=== PATIENT | female | born 1985 | race Caucasian/White ===

== ENCOUNTER 2016-07-30 08:42 | Emergency (ER) | payer MEDICARE ==
[2010-10-13 07:17] VITALS: BMI 25.4
== END 2016-07-30 10:03 | disposition home or self-care (01) ==
LOC: D.ER 08:42
DX: S46.912A Strain of unspecified muscle, fascia and tendon at shoulder and upper arm level, left arm, initial encounter (principal); X58.XXXA Exposure to other specified factors, initial encounter; Y93.89 Activity, other specified; Y92.019 Unspecified place in single-family (private) house as the place of occurrence of the external cause

== ENCOUNTER 2016-11-26 10:42 | Emergency (ER) | payer MEDICARE, MEDICAID ==
[2010-10-13 07:17] VITALS: BMI 25.4
[2016-11-26 16:17] LABS: ALBUMIN 3.6 g/dL (3.4-5.0); ALKALINE PHOSPHATASE 152 U/L (46-116); ALT (SGPT) 84 U/L (10-68); CALC OSMOLALITY 285 mosm/kg (275-300); CARBON DIOXIDE 27.6 mmol/L (21.0-32.0); CHLORIDE - SERUM 107 mmol/L (98-107); CREATININE - SERUM 0.9 mg/dL (0.6-1.3); GLUCOSE 100 mg/dL (74-106); POTASSIUM - SERUM 4.3 mmol/L (3.5-5.1); PROTEIN - SERUM 7.7 g/dL (6.4-8.2); SODIUM 144 mmol/L (136-145); UREA NITROGEN 11 mg/dL (7-18); eGFR NON AFRICAN AMERICAN 78 mL/min (90-120)
[2016-11-26 16:20] LABS: BASOPHILS 0.3 % (0-2); EOSINOPHILS 2.7 % (0-7); HEMATOCRIT 51.7 % (36.0-48.0); HEMOGLOBIN 15.8 g/dL (12-16); IMMATURE GRANULOCYTES 0.2 % (0-5); LYMPHOCYTES 29.8 % (15-50); MCH 29.4 pg (26.0-34.0); MCHC 30.6 g/dL (31.0-37.0); MCV 96.1 fL (80.0-100.0); MEAN PLATELET VOLUME 11.9 fL (7.4-10.4); MONOCYTES 8.5 % (2-11); NEUTROPHILS 58.5 % (40-80); PLATELET COUNT 188 10x3/uL (130-400); RBC 5.38 10x6/uL (4.00-5.40); RDW 14.9 % (11.5-14.5)
== END 2016-11-26 19:10 | disposition home or self-care (01) ==
LOC: D.ER 10:42
PROVIDERS: Physician Assistant
DX: R07.9 Chest pain, unspecified (principal); R05 Cough; K63.89 Other specified diseases of intestine

== ENCOUNTER 2016-12-30 10:07 | Emergency (ER) | payer MEDICARE ==
[2010-10-13 07:17] VITALS: BMI 25.4
== END 2016-12-30 11:34 | disposition home or self-care (01) ==
LOC: D.ER 10:07
DX: L02.01 Cutaneous abscess of face (principal); F17.200 Nicotine dependence, unspecified, uncomplicated

== ENCOUNTER 2017-01-04 08:49 | Emergency (ER) | payer MEDICARE ==
[2010-10-13 07:17] VITALS: BMI 25.4
== END 2017-01-04 10:09 | disposition home or self-care (01) ==
LOC: D.ER 08:49
DX: S01.81XD Laceration without foreign body of other part of head, subsequent encounter (principal); X58.XXXD Exposure to other specified factors, subsequent encounter; Y92.89 Other specified places as the place of occurrence of the external cause; Z48.02 Encounter for removal of sutures

== ENCOUNTER 2017-07-18 09:36 | Emergency (ER) | payer MEDICARE ==
[2010-10-13 07:17] VITALS: BMI 25.4
[2017-07-18 10:24] LABS: HCG URINE NEGATIVE (NEGATIVE)
[2017-07-18 10:34] LABS: APPEARANCE SLT CLOUDY (CLEAR); BILIRUBIN NEGATIVE (NEGATIVE); COLOR YELLOW (YELLOW); GLUCOSE NEGATIVE (NEGATIVE); KETONE NEGATIVE (NEGATIVE); NITRITE NEGATIVE (NEGATIVE); PROTEIN NEGATIVE (NEGATIVE); SPECIFIC GRAVITY 1.015 (1.005-1.020); UROBILINOGEN NORMAL (NORMAL)
[2017-07-18 10:35] LABS: BACTERIA MANY /hpf (NONE SEEN); RED CELLS - URINE RARE /hpf (0-5)
== END 2017-07-18 14:37 | disposition home or self-care (01) ==
LOC: D.ER 09:36
PROVIDERS: Family Medicine
DX: N39.0 Urinary tract infection, site not specified (principal); S39.012A Strain of muscle, fascia and tendon of lower back, initial encounter; W01.0XXA Fall on same level from slipping, tripping and stumbling without subsequent striking against object, initial encounter; Y93.89 Activity, other specified; Y92.013 Bedroom of single-family (private) house as the place of occurrence of the external cause

== ENCOUNTER 2017-09-11 10:36 | Emergency (ER) | payer MEDICARE ==
[2010-10-13 07:17] VITALS: BMI 25.4
[2017-09-11 11:43] LABS: APPEARANCE CLOUDY (CLEAR); BILIRUBIN NEGATIVE (NEGATIVE); COLOR YELLOW (YELLOW); GLUCOSE NEGATIVE (NEGATIVE); KETONE NEGATIVE (NEGATIVE); NITRITE NEGATIVE (NEGATIVE); PROTEIN 1+ mg/dL (NEGATIVE); SPECIFIC GRAVITY 1.025 (1.005-1.020); UROBILINOGEN NORMAL (NORMAL)
[2017-09-11 11:47] LABS: BACTERIA MANY /hpf (NONE SEEN); RED CELLS - URINE 0-5 /hpf (0-5)
== END 2017-09-11 12:42 | disposition home or self-care (01) ==
LOC: D.ER 10:36
PROVIDERS: Family Medicine
DX: N39.0 Urinary tract infection, site not specified (principal)

== ENCOUNTER 2018-05-01 18:19 | Inpatient (IN) | payer MEDICARE ==
[~2018-05-01] VITALS: Ht 170.2 cm; Wt 100.0 kg
--- NOTE | ~2018-05-01 | MORECARE ---
CASE MANAGEMENT DISCHARGE SUMMARY PATIENT: JEMAL AGOSTO UNIT: [id number] ADM DATE: 05/01/18 AGE: 32 : [birth year] SEX: F ROOM/BED: D.2213 AUTHOR: HANNA GUERRERO PHYSICIAN: REFERRING PHYSICIAN: SOFIYA CARR DO DATE OF SERVICE: 05/08/18 Discharge Plan Patient Name: JEMAL AGOSTO Facility: [facility]:[place] : 1985 Planned Disposition: Home Anticipated Discharge Date: Discharge Date: 05/03/2018 Expected LOS: 0 Initial Reviewer: [email or web address] Initial Review Date: 05/01/2018 Generated: 05/08/18 11:14 am Comments DCP- Discharge Planning Updated by [email or web address]: Karen Prakash on 05/03/18 12:[address] Patient Name: JEMAL AGOSTO Encounter No: [id number] : 1985 Primary Insurance: MEDICARE A & B Anticipated DC Date: Planned Disposition: Home External Planned Provider: : DCP follow-up note: Patient and family in agreement with discharge plan. No changes to plan. Case management will follow and assist as needed. Karen Prakash DCP- Discharge Planning Updated by [email or web address]: Karen Prakash on 05/02/18 9:[address] Patient Name: JEMAL AGOSTO Admission Status: ER Accout number: [id number] Admission Date: 05-01-2018 : 1985 Admission Diagnosis: Attending: SOFIYA CARR Current LOS: 1 Anticipated DC Date: Planned Disposition: Home Primary Insurance: MEDICARE A & B Discharge Planning Comments: CM met with patient and to assess discharge planning needs. Patient stated that she lives independently at home with her spouse and children and plans to return there at discharge. She has crutches and a wheelchair. I will wait to see if she will need any other DME. She plans to return home at discharge and states her home is safe. CM will continue to follow and assist with DC planning as needed Line Controller: Karen Prakash DCPIA - Discharge Planning Initial Assessment Updated by [email or web address]: Karen Prakash on 05/02/18 10:37 am * Is the patient Alert and Oriented? Yes * How many steps to enter\exit or inside your home? * PCP [facility] * Pharmacy [facility] * Preadmission Environment Home with Family * ADLs Independent * Equipment Crutch Wheelchair * List name and contact numbers for known caregivers / representatives who currently or will assist patient after discharge: FARHAT (DAD) [phone] DON 9HUSBAND) [phone] * Verbal permission to speak to the caregivers and representatives has been obtained from the patient. Yes * Community resources currently utilized None * Additional services required to return to the preadmission environment? Yes * Can the patient safely return to the preadmission environment? Yes * Has this patient been hospitalized within the prior 30 days at any hospital? No Last DP export: 05/03/18 12:18 Patient Name: JEMAL AGOSTO Page 14730 at 1014 All edits/amendments must be made on the electronic document DICTATION DATE: 05/08/18 1013 PROPERTY MAINTENANCE SUPERVISOR: KAREN 05/08/18 1013 RPT#: [id number] DC DATE:05/03/18 STATUS: DIS IN [facility] [address] [place] [address] END OF REPORT
--- NOTE | ~2018-05-01 | MORECARE ---
CASE MANAGEMENT DISCHARGE SUMMARY PATIENT: JEMAL AGOSTO UNIT: [id number] ADM DATE: 05/01/18 AGE: 32 : [birth year] SEX: F ROOM/BED: D.2213 AUTHOR: HANNA GUERRERO PHYSICIAN: REFERRING PHYSICIAN: SOFIYA CARR DO DATE OF SERVICE: 05/02/18 Discharge Plan Patient Name: JEMAL AGOSTO Facility: [facility]:[place] : 1985 Planned Disposition: Home Anticipated Discharge Date: Discharge Date: Expected LOS: Initial Reviewer: [id number] Initial Review Date: 05/01/2018 Generated: 05/02/18 11:43 am Comments DCP- Discharge Planning Updated by [email or web address]: Karen Prakash on 05/02/18 9:[address] Patient Name: JEMAL AGOSTO Admission Status: ER Accout number: [id number] Admission Date: 05-01-2018 : 1985 Admission Diagnosis: Attending: SOFIYA CARR Current LOS: 1 Anticipated DC Date: Planned Disposition: Home Primary Insurance: MEDICARE A & B Discharge Planning Comments: CM met with patient and to assess discharge planning needs. Patient stated that she lives independently at home with her spouse and children and plans to return there at discharge. She has crutches and a wheelchair. I will wait to see if she will need any other DME. She plans to return home at discharge and states her home is safe. CM will continue to follow and assist with DC planning as needed Pouch Maker: Karen Prakash DCPIA - Discharge Planning Initial Assessment Updated by [email or web address]: Karen Prakash on 05/02/18 10:37 am * Is the patient Alert and Oriented? Yes * How many steps to enter\exit or inside your home? * PCP [facility] * [facility] * Preadmission Environment Home with Family * ADLs Independent * Equipment Crutch Wheelchair * List name and contact numbers for known caregivers / representatives who currently or will assist patient after discharge: FARHAT (VALORIE) [phone] MARILIN ReyesUSBAND) [phone] * Verbal permission to speak to the caregivers and representatives has been obtained from the patient. Yes * Community resources currently utilized None * Additional services required to return to the preadmission environment? Yes * Can the patient safely return to the preadmission environment? Yes * Has this patient been hospitalized within the prior 30 days at any hospital? No Patient Name: JEMAL AGOSTO Page 92330 at 1043 All edits/amendments must be made on the electronic document DICTATION DATE: 05/02/18 104 REJOGGER: KAREN 05/02/18 1043 RPT#: [id number] DC DATE: STATUS: ADM IN [facility] [address] [place] [address] END OF REPORT
--- NOTE | ~2018-05-01 | OP ---
PATIENT NAME: JEMAL DOCKERY MEDICAL RECORD: [id number] :[birth year] LOCATION:D.MS [id number] ADMISSION DATE:05/01/18 SURGEON: SOFIYA CARR DO DATE OF OPERATION: 05/02/2018 PROCEDURE PERFORMED: Right ankle bimalleolar open reduction and internal fixation. PREOPERATIVE DIAGNOSIS: Closed displaced right bimalleolar ankle fracture. POSTOPERATIVE DIAGNOSIS: Closed displaced right bimalleolar ankle fracture. INDICATIONS: Ms. Dockery is a 32-year-old female who fell off of her porch chasing a dog yesterday. After she fell, she was brought by an ambulance to the ER. X-rays were done and it was seen she had a displaced bimalleolar ankle fracture. I informed her of risks and benefits of the procedure that she would undergo the plate and screws and only screws on the inside in the medial side. She could have damage to superficial peroneal nerve, giving her numbness on the top of foot. She was aware of those risks as well as infection, bleeding, need for further surgery, and at some point removal of hardware if it bothers her. She was okay with that and consented to the procedure. DESCRIPTION SURGEON: Sofiya Carr DO DESCRIPTION OF THE PROCEDURE: The patient was given a block by anesthesia in the preoperative area, taken to the operative suite, laid in the supine position. Right lower extremity was prepped and draped in sterile fashion with a tourniquet above the knee under drapes. She was given 2 grams of Ancef initially; however, the tourniquet was inflated just after giving it, so a gram was given at closing. Once the antibiotic was in, tourniquet was inflated to 350 mmHg and time-out had been performed. Incision was began over the fibula. Careful dissection was made down to the fibula itself. Reduction maneuver was made. The plate was put into place and all of wires were used to hold the reduction and plate in place. First, the distal locking screws, 4 of them, were put in in distal fibula and then 2 proximal screws proximal to the fracture site. This held the fracture very well. Then, the medial side was addressed. K-wires were put in, getting nice reduction of the medial malleolus, confirmed under x-ray. It was not in the joint and had good reduction. Two cannulated screws of 40 mm in length and partially threaded were put into the medial malleolus at that time. The syndesmosis was then addressed. To have better fixation, a TightRope was put in through the plate on the lateral side. TightRope was secured and tightened down. X-rays were taken in AP and lateral and everything seemed to be in good position. The tourniquet was then let down. Blood loss was approximately 50 mL. The incision was then thoroughly irrigated and the lateral side was closed with 2-0 Vicryl in an inverted interrupted fashion. ZipLine was applied over the incision. The medial side was closed in a horizontal mattress fashion with 4-0 Monocryl. Adaptic, 4 x 4's, and ABD were then placed over the patient's ankle and one ABD on the heel. Then, Webril and Kerlix were used and a 2 x 2 dressing on the ankle. A splint was placed posteriorly and secured in place with 6-inch and 4-inch Madi wraps. While the splint hardened, the ankle was held in neutral. The patient was then awakened and taken to recovery in stable condition. Tourniquet time was 49 minutes. BLOOD LOSS: 50 mL approximately. OPERATIVE REPORT [id number] JEMAL DOCKERY COMPLICATIONS: None. TRANSINT:[id number] Voice Confirmation ID: [id number] DOCUMENT ID: [id number] SOFIYA CARR DO at 1748 CC: [id number] DICTATION DATE: 05/02/18 170 LINOTYPER: 05/02/18 1741 ADM IN [facility] [address] [place] [id number]
--- NOTE | ~2018-05-01 | MORECARE ---
CASE MANAGEMENT DISCHARGE SUMMARY PATIENT: JEMAL AGOSTO UNIT: [id number] ADM DATE: 05/01/18 AGE: 32 : [birth year] SEX: F ROOM/BED: D.2213 AUTHOR: HANNA GUERRERO PHYSICIAN: REFERRING PHYSICIAN: SOFIYA CARR DO DATE OF SERVICE: 05/03/18 Discharge Plan Patient Name: JEMAL AGOSTO Facility: [facility]:[place] : 1985 Planned Disposition: Home Anticipated Discharge Date: Discharge Date: Expected LOS: Initial Reviewer: [email or web address] Initial Review Date: 05/01/2018 Generated: 05/03/18 2:18 pm Comments DCP- Discharge Planning Updated by [email or web address]: Karen Prakash on 05/03/18 12:[address] Patient Name: JEMAL AGOSTO Encounter No: [id number] : 1985 Primary Insurance: MEDICARE A & B Anticipated DC Date: Planned Disposition: Home External Planned Provider: : DCP follow-up note: Patient and family in agreement with discharge plan. No changes to plan. Case management will follow and assist as needed. Karen Prakash DCP- Discharge Planning Updated by [email or web address]: Karen Prakash on 05/02/18 9:[address] Patient Name: JEMAL AGOSTO Admission Status: ER Accout number: [id number] Admission Date: 05-01-2018 : 1985 Admission Diagnosis: Attending: SOFIYA CARR Current LOS: 1 Anticipated DC Date: Planned Disposition: Home Primary Insurance: MEDICARE A & B Discharge Planning Comments: CM met with patient and to assess discharge planning needs. Patient stated that she lives independently at home with her spouse and children and plans to return there at discharge. She has crutches and a wheelchair. I will wait to see if she will need any other DME. She plans to return home at discharge and states her home is safe. CM will continue to follow and assist with DC planning as needed Fiction And Nonfiction Prose Writer: Karen Prakash DCPIA - Discharge Planning Initial Assessment Updated by [email or web address]: Karen Prakash on 05/02/18 10:37 am * Is the patient Alert and Oriented? Yes * How many steps to enter\exit or inside your home? * PCP [facility] * [facility] * Preadmission Environment Home with Family * ADLs Independent * Equipment Crutch Wheelchair * List name and contact numbers for known caregivers / representatives who currently or will assist patient after discharge: AFRHAT (DAD) [phone] DON 9HUSBAND) [phone] * Verbal permission to speak to the caregivers and representatives has been obtained from the patient. Yes * Community resources currently utilized None * Additional services required to return to the preadmission environment? Yes * Can the patient safely return to the preadmission environment? Yes * Has this patient been hospitalized within the prior 30 days at any hospital? No Last DP export: 05/02/18 9:43 Patient Name: JEMAL AGOSTO Page [id number] at 1318 All edits/amendments must be made on the electronic document DICTATION DATE: 05/03/181317 LAMINATION OPERATOR: KAREN 05/03/18 1318 RPT#: [id number] DC DATE: STATUS: ADM IN [facility] [address] [place] [address] END OF REPORT
[2018-05-01 19:00] VITALS: BP 116/78
[2018-05-01 20:00] VITALS: BP 117/78
[2018-05-01 20:51] LABS: BASOPHILS 0.1 % (0-2); EOSINOPHILS 0.1 % (0-7); HEMATOCRIT 45.7 % (36.0-48.0); HEMOGLOBIN 14.6 g/dL (12-16); IMMATURE GRANULOCYTES 0.4 % (0-5); LYMPHOCYTES 15.8 % (15-50); MCH 29.4 pg (26.0-34.0); MCHC 31.9 g/dL (31.0-37.0); MEAN PLATELET VOLUME 10.7 fL (7.4-10.4); MONOCYTES 5.1 % (2-11); NEUTROPHILS 78.5 % (40-80); RBC 4.97 10x6/uL (4.00-5.40); RDW 14.7 % (11.5-14.5); WBC 9.5 10x3/uL (4.8-10.8)
[2018-05-01 20:53] LABS: PLATELET COUNT 289 10x3/uL (130-400)
[2018-05-01 21:22] LABS: ALBUMIN 3.2 g/dL (3.4-5.0); ALKALINE PHOSPHATASE 150 U/L (46-116); ALT (SGPT) 38 U/L (10-68); CALC OSMOLALITY 285 mosm/kg (275-300); CALCIUM 9.3 mg/dL (8.5-10.1); CARBON DIOXIDE 29.2 mmol/L (21.0-32.0); CHLORIDE - SERUM 106 mmol/L (98-107); CREATININE - SERUM 0.9 mg/dL (0.6-1.3); GLUCOSE 101 mg/dL (74-106); POTASSIUM - SERUM 4.3 mmol/L (3.5-5.1); PROTEIN - SERUM 7.1 g/dL (6.4-8.2); SODIUM 144 mmol/L (136-145); UREA NITROGEN 10 mg/dL (7-18); eGFR NON AFRICAN AMERICAN 77 mL/min (90-120)
[2018-05-01 23:48] VITALS: Ht 170.2 cm; Wt 100.0 kg
[2018-05-02] VITALS (8 sets, daily range): BP systolic 102–129; BP diastolic 63–82
[2018-05-02 08:10] LABS: HCG SERUM NEGATIVE (NEGATIVE)
[2018-05-03] VITALS: BP 106/59
[2018-05-03 05:10] VITALS: BP 101/51
[2018-05-03 09:01] VITALS: BP 99/62
[2018-05-03 12:05] VITALS: BP 117/76
[2018-05-03] MEDS ORDERED: OXYCODONE HCL5 M1 PO (12:34)
[2018-05-03] MEDS ORDERED: VISTARIL50 MG PO (12:34)
[2018-05-03] MEDS ORDERED: ELIQUIS2.5 MG PO (12:34)
[2018-05-03] MEDS ORDERED: KEFLEX500 MG PO (12:35)
== END 2018-05-03 17:49 | disposition home or self-care (01) | DRG 494 ==
LOC: D.ER 18:19 → D.MS 21:26
PROVIDERS: Anesthesiology; Family Medicine; Orthopaedic Surgery
PROC: 0QSJ04Z Reposition Right Fibula with Internal Fixation Device, Open Approach (ICD-10-PCS; 2018-05-02)
PROC: 0QSG04Z Reposition Right Tibia with Internal Fixation Device, Open Approach (ICD-10-PCS; principal; 2018-05-02 12:45)
DX: S82.841A Displaced bimalleolar fracture of right lower leg, initial encounter for closed fracture (principal); W17.89XA Other fall from one level to another, initial encounter

== ENCOUNTER 2019-06-15 06:01 | Day surgery (SDC) | payer MEDICARE ==
[~2019-06-15] VITALS: Ht 170.2 cm; Wt 100.0 kg
[~2019-06-15 06:01] MED LIST: ABILIFY2 MG PO; ELIQUIS2.5 MG PO; KEFLEX500 MG PO; OXYCODONE HCL5 M1 PO; ULTRAM50 MG PO; VISTARIL50 MG PO
[2019-06-15 06:46] LABS: HEMATOCRIT 37.1 % (36.0-48.0); HEMOGLOBIN 10.7 g/dL (12-16); MCH 23.5 pg (26.0-34.0); MCHC 28.8 g/dL (31.0-37.0); MCV 81.4 fL (80.0-100.0); MEAN PLATELET VOLUME 10.2 fL (7.4-10.4); RBC 4.56 10x6/uL (4.00-5.40); RDW 18.9 % (11.5-14.5); WBC 6.8 10x3/uL (4.8-10.8)
--- NOTE | 2019-06-15 07:26 | NUR ---
SUICIDE SCREENING POSITIVE FOR LIFETIME QUESTION. JOSSUE ESTRELLAENCOMPASS HEALTHLOOM OPERATOR NOTIFIED.
[2019-06-15 07:34] VITALS: BP 113/67; Ht 170.2 cm; Wt 100.0 kg
--- NOTE | 2019-06-15 07:48 | NUR ---
According to the suicide assessment the patient scores low and will not require a 1:1 observation. The suicide resource flyer provided to the patient.
[2019-06-15] MEDS ORDERED: OXYCODONE HCL5 M1 PO (09:50)
--- NOTE | 2019-06-15 11:31 | OP ---
PATIENT NAME: JEMAL DOCKERY MEDICAL RECORD: [id number] :[birth year] LOCATION:[facility] ADMISSION DATE: SURGEON: HERNÁN CARR DO DATE OF OPERATION: 06/15/2019 PROCEDURE PERFORMED: Removal of hardware from the right ankle. PREOPERATIVE DIAGNOSIS: Painful hardware, right ankle. POSTOPERATIVE DIAGNOSIS: Painful hardware, right ankle. INDICATIONS: Ms. Dockery is a 34-year-old female who underwent right ankle open reduction and internal fixation for bimalleolar ankle fracture with syndesmotic injury approximately 13 months ago. She has had some pain and thought it may be caused from the plate. She was tired of dealing with it and wanted something done surgically as far as getting it removed. She thought that it would make the pain go away. I informed her of the risks including infection, bleeding, fracture, damage to nerves and vessels, need for further surgery, blood clots, and even . She signed the consent. SURGEON: Hernán Carr DO DESCRIPTION OF PROCEDURE: The patient was taken to the operative suite, laid in the supine position, given general anesthetic, given 2 grams of Ancef and LMA was placed. The right lower extremity was then prepped and draped in sterile fashion. Timeout was performed and everyone was in agreement with correct side, site, and patient and procedure. The right lower extremity was then exsanguinated with an Esmarch and the tourniquet was inflated to 350 mmHg and was up for 34 minutes. The incision then began over the lateral ankle. Careful dissection was made down to the plate. The plate was removed as was all the hardware and then the medial side of the ankle was addressed as well. Two screws were removed medially and the syndesmotic button on the medial side was removed as well with the sutures. X-ray was then taken ensuring all the hardware was removed and the ankle was stable and it was. Tourniquet was then let down. Any bleeding was coagulated with the Bovie and the incisions were irrigated and then closed with 2-0 Vicryl in inverted interrupted fashion. Steri-Strips were placed on the medial side, 2 incisions on the lateral side to cover with Zip Line. Adaptic, 4 x 4s, ABD, Webril, Madi wrap were then placed around the ankle and placed into a 3 x 30 short posterior splint and secured with an Madi wrap. She was awakened and taken to recovery in stable condition. BLOOD LOSS: Minimal. COMPLICATIONS: None. TRANSINT:[id number] Voice Confirmation ID: [id number] DOCUMENT ID: [id number] OPERATIVE REPORT [id number] JEMAL DOCKERY MICHAEL D, DO at 1131 CC: [id number] DICTATION DATE: 06/15/1949 STACK SUPERVISOR: 06/15/19 1030 [id number] [place] [address]
== END 2019-06-15 12:00 | disposition home or self-care (01) ==
LOC: D.OPS 06:01 → D.PAN 08:00 → D.OPS 12:00
PROVIDERS: Anesthesiology; ATTEND Orthopaedic Surgery
DX: M25.571 Pain in right ankle and joints of right foot (principal)

== ENCOUNTER 2020-04-19 14:17 | Emergency (ER) | payer MEDICARE ==
[2020-04-19 14:27] VITALS: Ht 170.2 cm
[2020-04-19 15:42] LABS: HEMATOCRIT 34.4 % (36.0-48.0); HEMOGLOBIN 9.8 g/dL (12-16); LYMPHOCYTES 29.5 % (15-50); MCH 22.3 pg (26.0-34.0); MCHC 28.5 g/dL (31.0-37.0); MCV 78.2 fL (80.0-100.0); MEAN PLATELET VOLUME 10.6 fL (7.4-10.4); NEUTROPHILS 62.6 % (40-80); PLATELET COUNT 225 10x3/uL (130-400); RDW 18.6 % (11.5-14.5); WBC 6.7 10x3/uL (4.8-10.8)
[2020-04-19 15:54] LABS: CALC OSMOLALITY 279 mosm/kg (275-300); CALCIUM 8.9 mg/dL (8.5-10.1); CARBON DIOXIDE 28.1 mmol/L (21.0-32.0); CHLORIDE - SERUM 107 mmol/L (98-107); CREATININE - SERUM 0.9 mg/dL (0.6-1.3); GLUCOSE 95 mg/dL (74-106); POTASSIUM - SERUM 4.2 mmol/L (3.5-5.1); SODIUM 141 mmol/L (136-145); UREA NITROGEN 11 mg/dL (7-18); eGFR NON AFRICAN AMERICAN 76 mL/min (90-120)
[2020-04-19 15:59] LABS: HCG SERUM NEGATIVE (NEGATIVE)
[2020-04-19 16:03] LABS: ALBUMIN 3.3 g/dL (3.4-5.0); ALKALINE PHOSPHATASE 128 U/L (30-120); BILIRUBIN NEGATIVE (NEGATIVE); BILIRUBIN - TOTAL 0.38 mg/dL (0.2-1.3); KETONE NEGATIVE (NEGATIVE); NITRITE NEGATIVE (NEGATIVE); PROTEIN - SERUM 6.8 g/dL (6.4-8.2); UROBILINOGEN NORMAL mg/dL (< 2)
[2020-04-19 16:04] LABS: ALT (SGPT) < 6 U/L (10-68)
[2020-04-19 16:06] LABS: EPITHELIAL CELLS 0-5 /hpf (0-5); WHITE CELLS - URINE 0-5 HPF (0-4)
[2020-04-19 16:07] LABS: BACTERIA MODERATE HPF (NONE SEEN)
[2020-04-19 18:01] VITALS: BP 134/60
== END 2020-04-19 18:01 | disposition home or self-care (01) ==
LOC: D.ER 14:17
PROVIDERS: Family Medicine
DX: N93.9 Abnormal uterine and vaginal bleeding, unspecified (principal)

== ENCOUNTER → 2020-09-04 13:15 | Outpatient (CLI) | payer MEDICARE ==
--- NOTE | 2020-09-04 14:17 | NUR ---
TIMEOUT PERFORMED AT 1405 USING NAME AND . NKDA,
== END | disposition home or self-care (01) ==
LOC: D.RAD 13:15
PROVIDERS: ATTEND Orthopaedic Surgery
DX: S43.432A Superior glenoid labrum lesion of left shoulder, initial encounter (principal)